=== PATIENT | female | born 1990 | race Caucasian/White ===

== ENCOUNTER 2017-10-08 11:47 | Emergency (ER) | payer MEDICAID ==
[~2017-10-08] VITALS: Ht 162.6 cm; Wt 90.0 kg
[~2017-10-08 11:47] MED LIST: CEPH-571 PO; CHLO10MO PO; CHLO473M3 PO; DIPH12.59 PO; FAMO40TA73 PO; HYDR-569 PO; LIDO20SO PO; LORA-512 PO; METH-35 PO; NAPR-56 PO; PROP10TA10 PO; TRAZ-91 PO; ZOL50T PO
[2017-10-08 11:50] VITALS: BP 125/81
[2017-10-08] MEDS ORDERED: PENI500T2 PO (12:19)
[2017-10-08] MEDS ORDERED: NAPR-56 PO (12:19)
[2017-10-08] MEDS ORDERED: HYDROcodone/acetaminophen 5mg/325mg tablet PO ONE (12:20)
== END 2017-10-08 12:36 | disposition home or self-care (01) ==
LOC: ER 11:47
DX: K08.89 Other specified disorders of teeth and supporting structures (principal); K21.9 Gastro-esophageal reflux disease without esophagitis; Z56.0 Unemployment, unspecified; Z88.8 Allergy status to other drugs, medicaments and biological substances; Z79.899 Other long term (current) drug therapy
CPT/HCPCS: 99283

== ENCOUNTER 2017-11-20 15:52 | Emergency (ER) | payer MEDICAID ==
[~2017-11-20] VITALS: Ht 165.1 cm; Wt 88.6 kg
[2017-11-20] MEDS ORDERED: IBUP-1986 PO (16:41)
[2017-11-20] MEDS ORDERED: PENI250T2 PO (16:41)
[2017-11-20 16:50] VITALS: BP 130/89
== END 2017-11-20 16:52 | disposition home or self-care (01) ==
LOC: ER 15:53
DX: K08.89 Other specified disorders of teeth and supporting structures (principal); K21.9 Gastro-esophageal reflux disease without esophagitis; Z56.0 Unemployment, unspecified; Z88.8 Allergy status to other drugs, medicaments and biological substances; Z79.899 Other long term (current) drug therapy
CPT/HCPCS: 99283

== ENCOUNTER 2017-12-16 20:26 | Emergency (ER) | payer MEDICAID ==
[~2017-12-16] VITALS: Ht 162.6 cm; Wt 89.2 kg
[~2017-12-16 20:26] MED LIST changes: +IBUP-1986 PO
[2017-12-16 21:39] LABS: CLARITY,URINE SLIGHTLY CLOUDY (Clear); COLOR,URINE YELLOW (Yellow); GLUCOSE, URINE NEGATIVE (Neg); KETONES,URINE TRACE mg/dl (Neg); LEUKOCYTE ESTERASE ,URINE SMALL (Neg); NITRITES, URINE NEGATIVE (Neg); OCCULT BLOOD,URINE NEGATIVE (Neg); PROTEIN,URINE NEGATIVE (Neg); URINE HCG NEGATIVE (NEG)
[2017-12-16 21:40] LABS: UA COLLECTION TYPE CLN CATCH MIDSTREAM
[2017-12-16 21:49] LABS: BACTERIA,URINE 2+ /HPF (Neg); RBC,URINE NONE SEEN /HPF (0-2); SQUAMOUS EPITHELIAL CELL,UR MANY /LPF (FEW); WBC,URINE 0-4 /HPF (0-4)
[2017-12-16 21:57] LABS: BASOPHILS % (AUTO) 0.4 % (0-1); EOSINOPHILS # (AUTO) 0.2 X10'3 (0-0.9); EOSINOPHILS % (AUTO) 1.6 % (0-6); HEMATOCRIT 38.5 % (35.0-45.0); HEMOGLOBIN 13.2 g/dl (12.0-16.0); LYMPHOCYTES # (AUTO) 3.4 X10'3 (1.1-4.8); LYMPHOCYTES % (AUTO) 32.8 % (21-51); MEAN CORPUSCULAR HEMOGLOBIN 30.3 PG (27.0-31.0); MEAN CORPUSCULAR HGB CONC 34.3 % (33.0-36.5); MEAN CORPUSCULAR VOLUME 88.4 FL (78-98); MEAN PLATELET VOLUME 7.9 FL (7.4-10.4); MONOCYTES # (AUTO) 0.9 X10'3 (0-0.9); MONOCYTES % (AUTO) 8.5 % (2-12); NEUTROPHILS # (AUTO) 5.9 X10'3 (1.8-7.7); NEUTROPHILS % (AUTO) 56.7 % (42-75); PLATELET COUNT 249 X10'3 (140-440); RED BLOOD COUNT 4.35 X10'6 (4.20-5.60); RED CELL DISTRIBUTION WIDTH 13.1 % (11.5-14.5); WHITE BLOOD COUNT 10.4 X10'3 (4.5-11.0)
[2017-12-16 22:07] LABS: PROTHROMBIN TIME 10.1 SECONDS (9.0-12.0)
[2017-12-16 22:11] LABS: ALANINE AMINOTRANSFERASE 26 U/L (12-78); ALBUMIN 3.8 G/DL (3.4-5.0); ALBUMIN/GLOBULIN RATIO 1.1 (1.1-1.5); ALKALINE PHOSPHATASE 63 IU/L (46-116); ANION GAP 8 (8-16); ASPARTATE AMINO TRANSFERASE 18 U/L (10-37); BILIRUBIN,TOTAL 0.2 MG/DL (0.1-1.0); BLOOD UREA NITROGEN 10 MG/DL (7-18); BUN/CREATININE RATIO 12.3 (6.6-38.0); CALCIUM 8.8 MG/DL (8.5-10.1); CHLORIDE 105 MMOL/L (99-107); CREATININE 0.81 MG/DL (0.40-0.90); GLUCOSE 103 MG/DL (70-104); POTASSIUM 3.8 MMOL/L (3.5-5.1); SODIUM 139 MMOL/L (135-145); TOTAL CARBON DIOXIDE 25.7 MMOL/L (24-32); TOTAL PROTEIN 7.4 G/DL (6.4-8.2); eGFR 84 ML/MIN
[2017-12-16] MEDS ORDERED: NO HOME MEDS (22:45)
[2017-12-17 00:15] VITALS: BP 117/69
[2017-12-17] MEDS ORDERED: HYDROcodone/acetaminophen 10/325mg tab PO ONE (00:55)
[2017-12-17] MEDS ORDERED: ketorolac trometh inj. 60 MG/2 ML VIAL IM ONE (00:55)
[2017-12-17] MEDS ORDERED: IBUP-1984 PO (01:20)
== END 2017-12-17 02:15 | disposition home or self-care (01) ==
LOC: ER 20:27
DX: R10.9 Unspecified abdominal pain (principal); K21.9 Gastro-esophageal reflux disease without esophagitis; Z90.89 Acquired absence of other organs; Z56.0 Unemployment, unspecified; Z88.8 Allergy status to other drugs, medicaments and biological substances
CPT/HCPCS: 36415; 74176; 80053; 81001; 81025; 85025; 85610; 96372; 99285; J1885

== ENCOUNTER 2018-01-16 11:58 | Emergency (ER) | payer MEDICAID ==
[~2018-01-16] VITALS: Ht 162.6 cm; Wt 90.4 kg
[~2018-01-16 11:58] MED LIST changes: -CEPH-571 PO; -CHLO10MO PO; -CHLO473M3 PO; -DIPH12.59 PO; -FAMO40TA73 PO; -HYDR-569 PO; +IBUP-1984 PO; -IBUP-1986 PO; -LIDO20SO PO; -LORA-512 PO; -METH-35 PO; -NAPR-56 PO; +NO HOME MEDS; -PROP10TA10 PO; -TRAZ-91 PO; -ZOL50T PO
[2018-01-16 12:02] VITALS: BP 128/76
[2018-01-16] MEDS ORDERED: HYDROcodone/acetaminophen 5mg/325mg tablet PO ONE (12:20)
[2018-01-16] MEDS ORDERED: ketorolac trometh. 30mg/ml inj. IM ONE (12:20)
[2018-01-16] MEDS ORDERED: ondansetron 4mg rapidly disintigrating tab PO ONE (12:20)
[2018-01-16] MEDS ORDERED: acetaminophen 325mg tablet PO ONE (12:20)
[2018-01-16 12:40] LABS: CLARITY,URINE SLIGHTLY CLOUDY (Clear); COLOR,URINE YELLOW (Yellow); GLUCOSE, URINE NEGATIVE (Neg); KETONES,URINE NEGATIVE (Neg); LEUKOCYTE ESTERASE ,URINE NEGATIVE (Neg); NITRITES, URINE NEGATIVE (Neg); OCCULT BLOOD,URINE NEGATIVE (Neg); PH,URINE 6.5 (4.8-8.0); PROTEIN,URINE NEGATIVE (Neg); URINE HCG NEGATIVE (NEG); UROBILINOGEN,URINE 0.2 E.U/dL (0.2-1.0)
[2018-01-16 12:50] LABS: UA COLLECTION TYPE CLN CATCH MIDSTREAM
[2018-01-16 12:51] LABS: BACTERIA,URINE 1+ /HPF (Neg); RBC,URINE NONE SEEN /HPF (0-2); SQUAMOUS EPITHELIAL CELL,UR MANY /LPF (FEW); WBC,URINE 0-4 /HPF (0-4)
[2018-01-16] MEDS ORDERED: ONDA8TAB9 PO (13:01)
[2018-01-16] MEDS ORDERED: HYDR-3965 PO (13:01)
[2018-01-16] MEDS ORDERED: MELO-100 PO (13:01)
[2018-01-16] MEDS ORDERED: CYCL-1 PO (13:01)
[2018-01-16] MEDS ORDERED: LIDO700A32 TOP (13:01)
== END 2018-01-16 13:14 | disposition home or self-care (01) ==
LOC: ER 11:58
DX: M54.5 Low back pain (principal); K21.9 Gastro-esophageal reflux disease without esophagitis; Z90.89 Acquired absence of other organs; Z88.6 Allergy status to analgesic agent; Z79.899 Other long term (current) drug therapy; Z56.0 Unemployment, unspecified
CPT/HCPCS: 81001; 81025; 96372; 99284; J1885

== ENCOUNTER 2019-04-01 13:09 | Emergency (ER) | payer MEDICAID ==
[~2019-04-01] VITALS: Ht 162.6 cm; Wt 95.0 kg
[~2019-04-01 13:09] MED LIST changes: +CIPR7.5D RIGHT EAR; +CYCL-1 PO; -IBUP-1984 PO; +LIDO700A32 TOP; +MELO-100 PO; +ONDA8TAB9 PO
[2019-04-01] MEDS ORDERED: BUPIVAcaine/PF 2.5mg/ml (0.25%) 10ml vial ONE (13:56)
[2019-04-01] MEDS ORDERED: ondansetron/PF 4mg/2ml inj IV ONE (14:50)
[2019-04-01] MEDS ORDERED: normal saline 1000ML IV soln IVB ONE (14:50)
[2019-04-01 15:11] LABS: BASOPHILS % (AUTO) 0.6 % (0-1); EOSINOPHILS # (AUTO) 0.1 X10'3 (0-0.9); EOSINOPHILS % (AUTO) 0.8 % (0-6); HEMATOCRIT 42.7 % (35.0-45.0); HEMOGLOBIN 14.9 g/dl (12.0-16.0); LYMPHOCYTES % (AUTO) 27.6 % (21-51); MEAN CORPUSCULAR HEMOGLOBIN 30.6 PG (27.0-31.0); MEAN CORPUSCULAR HGB CONC 34.8 g/dL (33.0-36.5); MEAN PLATELET VOLUME 7.9 FL (7.4-10.4); MONOCYTES % (AUTO) 13.8 % (2-12); NEUTROPHILS # (AUTO) 4.2 X10'3 (1.8-7.7); NEUTROPHILS % (AUTO) 57.2 % (42-75); PLATELET COUNT 294 X10'3 (140-440); RED BLOOD COUNT 4.86 X10'6 (4.20-5.60); RED CELL DISTRIBUTION WIDTH 13.4 % (11.5-14.5); WHITE BLOOD COUNT 7.3 X10'3 (4.5-11.0)
[2019-04-01 15:30] LABS: ALANINE AMINOTRANSFERASE 60 U/L (12-78); ALBUMIN 3.8 G/DL (3.4-5.0); ALBUMIN/GLOBULIN RATIO 0.9 (1.1-1.5); ALKALINE PHOSPHATASE 64 IU/L (46-116); ANION GAP 9 (8-16); ASPARTATE AMINO TRANSFERASE 37 U/L (10-37); BILIRUBIN,TOTAL 0.2 MG/DL (0.1-1.0); BLOOD UREA NITROGEN 12 MG/DL (7-18); BUN/CREATININE RATIO 14.1 (6.6-38.0); CALCIUM 9.2 MG/DL (8.5-10.1); CHLORIDE 102 MMOL/L (99-107); CREATININE 0.85 MG/DL (0.40-0.90); GLUCOSE 87 MG/DL (70-104); LIPASE 86 U/L (73-393); POTASSIUM 3.5 MMOL/L (3.5-5.1); SODIUM 139 MMOL/L (135-145); TOTAL CARBON DIOXIDE 28.5 MMOL/L (24-32); TOTAL PROTEIN 8.2 G/DL (6.4-8.2); eGFR 79 ML/MIN
[2019-04-01 15:30] LABS: URINE HCG NEGATIVE (NEG)
[2019-04-01 15:31] LABS: CLARITY,URINE SLIGHTLY CLOUDY (Clear); COLOR,URINE YELLOW (Yellow); GLUCOSE, URINE NEGATIVE (Neg); KETONES,URINE NEGATIVE (Neg); LEUKOCYTE ESTERASE ,URINE NEGATIVE (Neg); NITRITES, URINE NEGATIVE (Neg); OCCULT BLOOD,URINE NEGATIVE (Neg); PROTEIN,URINE NEGATIVE (Neg); UROBILINOGEN,URINE 0.2 E.U/dL (0.2-1.0)
[2019-04-01 15:36] LABS: UA COLLECTION TYPE CLN CATCH MIDSTREAM
[2019-04-01 15:37] LABS: BACTERIA,URINE 4+ /HPF (Neg); MUCUS STRANDS FEW /LPF (Neg); RBC,URINE NONE SEEN /HPF (0-2); SQUAMOUS EPITHELIAL CELL,UR MANY /LPF (FEW); WBC,URINE 0-4 /HPF (0-4)
[2019-04-01] MEDS ORDERED: ONDA4TAB12 PO (15:39)
[2019-04-01 15:52] VITALS: BP 130/85
== END 2019-04-01 15:55 | disposition home or self-care (01) ==
LOC: ER 13:09
DX: R11.2 Nausea with vomiting, unspecified (principal); R19.7 Diarrhea, unspecified; E86.0 Dehydration; K21.9 Gastro-esophageal reflux disease without esophagitis; F41.9 Anxiety disorder, unspecified; F32.9 Major depressive disorder, single episode, unspecified; Z98.890 Other specified postprocedural states; Z56.0 Unemployment, unspecified; Z88.8 Allergy status to other drugs, medicaments and biological substances; Z79.2 Long term (current) use of antibiotics; Z79.899 Other long term (current) drug therapy
CPT/HCPCS: 36415; 80053; 81001; 81025; 83690; 85025; 96374; 99283; J2405; J3490

== ENCOUNTER 2019-07-04 15:26 | Emergency (ER) | payer MEDICAID, OTHER ==
[~2019-07-04] VITALS: Ht 162.6 cm; Wt 94.3 kg
[~2019-07-04 15:26] MED LIST changes: +ONDA4TAB12 PO
[2019-07-04 16:15] LABS: BASOPHILS # (AUTO) 0.1 X10'3 (0-0.2); BASOPHILS % (AUTO) 0.4 % (0-1); EOSINOPHILS # (AUTO) 2.5 X10'3 (0-0.9); EOSINOPHILS % (AUTO) 17.7 % (0-6); HEMATOCRIT 42.7 % (35.0-45.0); HEMOGLOBIN 14.4 g/dl (12.0-16.0); MEAN CORPUSCULAR HGB CONC 33.8 g/dL (33.0-36.5); MEAN CORPUSCULAR VOLUME 88.7 FL (78-98); MEAN PLATELET VOLUME 8.1 FL (7.4-10.4); MONOCYTES # (AUTO) 0.8 X10'3 (0-0.9); MONOCYTES % (AUTO) 5.5 % (2-12); NEUTROPHILS # (AUTO) 7.8 X10'3 (1.8-7.7); NEUTROPHILS % (AUTO) 55.4 % (42-75); PLATELET COUNT 281 X10'3 (140-440); RED BLOOD COUNT 4.81 X10'6 (4.20-5.60); RED CELL DISTRIBUTION WIDTH 14.1 % (11.5-14.5); WHITE BLOOD COUNT 14.1 X10'3 (4.5-11.0)
[2019-07-04 16:31] LABS: ALANINE AMINOTRANSFERASE 18 U/L (12-78); ALBUMIN 3.7 G/DL (3.4-5.0); ALKALINE PHOSPHATASE 91 IU/L (46-116); ANION GAP 5 (8-16); ASPARTATE AMINO TRANSFERASE 14 U/L (10-37); BILIRUBIN,TOTAL 0.2 MG/DL (0.1-1.0); BLOOD UREA NITROGEN 7 MG/DL (7-18); BUN/CREATININE RATIO 8.5 (6.6-38.0); CHLORIDE 107 MMOL/L (99-107); CREATININE 0.82 MG/DL (0.40-0.90); GLUCOSE 91 MG/DL (70-104); LIPASE 89 U/L (73-393); POTASSIUM 3.5 MMOL/L (3.5-5.1); SODIUM 140 MMOL/L (135-145); TOTAL CARBON DIOXIDE 28.4 MMOL/L (24-32); TOTAL PROTEIN 7.5 G/DL (6.4-8.2); eGFR 82 ML/MIN
[2019-07-04] MEDS ORDERED: morphine 4 MG/ML inj SYRINge IM ONE (18:50)
[2019-07-04] MEDS ORDERED: ondansetron 4mg rapidly disintigrating tab PO ONE (18:50)
[2019-07-04 18:53] LABS: URINE HCG NEGATIVE (NEG)
[2019-07-04 18:59] VITALS: BP 117/74
[2019-07-04 19:03] LABS: CLARITY,URINE SLIGHTLY CLOUDY (Clear); COLOR,URINE YELLOW (Yellow); GLUCOSE, URINE NEGATIVE (Neg); KETONES,URINE TRACE mg/dl (Neg); LEUKOCYTE ESTERASE ,URINE NEGATIVE (Neg); NITRITES, URINE NEGATIVE (Neg); OCCULT BLOOD,URINE NEGATIVE (Neg); PROTEIN,URINE NEGATIVE (Neg); UROBILINOGEN,URINE 0.2 E.U/dL (0.2-1.0)
[2019-07-04 19:13] LABS: UA COLLECTION TYPE CLN CATCH MIDSTREAM
[2019-07-04 19:14] LABS: BACTERIA,URINE 1+ /HPF (Neg); RBC,URINE NONE SEEN /HPF (0-2); SQUAMOUS EPITHELIAL CELL,UR MANY /LPF (FEW)
[2019-07-04] MEDS ORDERED: ONDA4TAB6 PO (20:19)
== END 2019-07-04 20:42 | disposition home or self-care (01) ==
LOC: ER 15:26
DX: R10.13 Epigastric pain (principal); R10.31 Right lower quadrant pain; R10.12 Left upper quadrant pain; R11.2 Nausea with vomiting, unspecified; R19.7 Diarrhea, unspecified; K21.9 Gastro-esophageal reflux disease without esophagitis; F41.9 Anxiety disorder, unspecified; F32.9 Major depressive disorder, single episode, unspecified; Z90.49 Acquired absence of other specified parts of digestive tract; Z56.0 Unemployment, unspecified; Z88.8 Allergy status to other drugs, medicaments and biological substances; Z79.2 Long term (current) use of antibiotics; Z79.899 Other long term (current) drug therapy
CPT/HCPCS: 36415; 74176; 80053; 81001; 81025; 83690; 85025; 96372; 99284; J2270

== ENCOUNTER 2020-06-09 21:18 | Emergency (ER) | payer MEDICAID ==
[~2020-06-09] VITALS: Ht 162.6 cm; Wt 95.9 kg
[~2020-06-09 21:18] MED LIST changes: +ONDA4TAB6 PO
[2020-06-09] MEDS ORDERED: penicillin V potassium 500mg tablet PO ONE (23:40)
[2020-06-09] MEDS ORDERED: PENI500T2 PO (23:41)
[2020-06-09 23:48] VITALS: BP 152/88
== END 2020-06-09 23:50 | disposition home or self-care (01) ==
LOC: ER 21:19
DX: K05.10 Chronic gingivitis, plaque induced (principal); K21.9 Gastro-esophageal reflux disease without esophagitis; F41.9 Anxiety disorder, unspecified; F32.9 Major depressive disorder, single episode, unspecified; Z72.89 Other problems related to lifestyle; Z56.0 Unemployment, unspecified; Z88.8 Allergy status to other drugs, medicaments and biological substances; Z79.899 Other long term (current) drug therapy
CPT/HCPCS: 99283

== ENCOUNTER 2021-06-12 12:10 | Emergency (ER) | payer MEDICAID ==
[~2021-06-12] VITALS: Ht 162.6 cm; Wt 92.7 kg
[2021-06-12 14:42] VITALS: BP 134/80
== END 2021-06-12 14:45 | disposition home or self-care (01) ==
LOC: ER 12:11
DX: J06.9 Acute upper respiratory infection, unspecified (principal); Z20.822 Contact with and (suspected) exposure to COVID-19; R05.9 Cough, unspecified; R07.89 Other chest pain; R09.89 Other specified symptoms and signs involving the circulatory and respiratory systems; F41.9 Anxiety disorder, unspecified; F32.9 Major depressive disorder, single episode, unspecified; K21.9 Gastro-esophageal reflux disease without esophagitis; Z72.89 Other problems related to lifestyle; Z90.89 Acquired absence of other organs; Z56.0 Unemployment, unspecified; Z88.8 Allergy status to other drugs, medicaments and biological substances; Z79.2 Long term (current) use of antibiotics; Z79.899 Other long term (current) drug therapy
CPT/HCPCS: 87502; 87503; 87635; 99283; C9803

== ENCOUNTER 2023-04-01 10:30 | Emergency (ER) | payer MEDICAID ==
[~2023-04-01] VITALS: Ht 162.6 cm; Wt 92.4 kg
[2023-04-01] MEDS ORDERED: HYDROcodone/acetaminophen 10/325mg tab PO STA (10:41)
[2023-04-01 12:42] VITALS: BP 157/72; PULSE 99; RESP 16; TEMP 98.6; O2SAT 98
== END 2023-04-01 12:47 | disposition home or self-care (01) ==
LOC: ER 10:30
DX: S93.402A Sprain of unspecified ligament of left ankle, initial encounter (principal); Z72.89 Other problems related to lifestyle; Z90.49 Acquired absence of other specified parts of digestive tract; Z79.899 Other long term (current) drug therapy; Z88.8 Allergy status to other drugs, medicaments and biological substances; Z79.2 Long term (current) use of antibiotics; W19.XXXA Unspecified fall, initial encounter; Z91.81 History of falling; Y93.89 Activity, other specified; Y92.89 Other specified places as the place of occurrence of the external cause; Y99.8 Other external cause status
CPT/HCPCS: 29530; 73610; 73630; 99284; L1930

== ENCOUNTER 2023-07-10 09:50 | Emergency (ER) | payer MEDICAID ==
[~2023-07-10] VITALS: Ht 162.6 cm; Wt 90.9 kg
[2023-07-10 10:17] VITALS: BP 131/86; PULSE 82; TEMP 98.1; O2SAT 98
[2023-07-10 10:54] VITALS: RESP 18
== END 2023-07-10 12:30 | disposition home or self-care (01) ==
LOC: ER 09:51
DX: J00 Acute nasopharyngitis [common cold] (principal); K21.9 Gastro-esophageal reflux disease without esophagitis; Z88.6 Allergy status to analgesic agent; Z79.2 Long term (current) use of antibiotics; Z79.899 Other long term (current) drug therapy; Z98.890 Other specified postprocedural states
CPT/HCPCS: 87502; 87503; 99283